=== PATIENT | male | born 1955 | race Caucasian/White ===

== ENCOUNTER 2023-04-02 09:39 | Observation (INO) ==
[2023-04-02 12:05] LABS: BASOPHILS # (AUTO) 0.1 X10^3/uL (0.0-0.1); BASOPHILS % (AUTO) 0.7 % (0.2-1.0); EOSINOPHILS # (AUTO) 0.4 x10^3/uL (0.0-0.2); EOSINOPHILS % (AUTO) 3.9 % (0.9-2.9); HEMATOCRIT 24.6 % (42.0-54.0); HEMOGLOBIN 8.5 g/dL (13.5-18.0); LYMPHOCYTES # (AUTO) 1.2 X10^3/uL (1.3-2.9); LYMPHOCYTES % (AUTO) 12.9 % (21.0-51.0); MEAN CORPUSCULAR HEMOGLOBIN 32.7 pg (27.0-34.0); MEAN CORPUSCULAR HGB CONC 34.7 g/dL (33.0-35.0); MEAN CORPUSCULAR VOLUME 94.2 fL (80.0-100.0); MEAN PLATELET VOLUME 7.2 fL (7.4-11.0); MONOCYTES # (AUTO) 0.7 x10^3/uL (0.3-0.8); MONOCYTES % (AUTO) 7.5 % (0.0-13.0); NEUTROPHILS # (AUTO) 6.9 x10^3/uL (2.2-4.8); PLATELET COUNT 182 X10^3/uL (150.0-450.0); RED BLOOD COUNT 2.61 X10^6/uL (4.7-6.0); RED CELL DISTRIBUTION WIDTH 15.6 % (11.6-16.5); WHITE BLOOD COUNT 9.2 X10^3/uL (3.6-10.0)
[2023-04-02 12:15] LABS: ALBUMIN 1.2 g/dL (3.4-5.0); CALCIUM 7.6 mg/dL (8.5-10.1); CARBON DIOXIDE 30.1 mmol/L (21-32); COR CA(FOR HYPOALB) 9.8 mg/dL (8.5-10.1); CREATININE 2.58 mg/dL (0.70-1.30); POTASSIUM 5.3 mmol/L (3.5-5.1); TOTAL PROTEIN 4.8 g/dL (6.4-8.2)
[2023-04-02] MEDS ORDERED: XYLOCAINE 1 % (PLAIN) ONE (12:39)
[2023-04-02] MEDS: PROVENTIL NEB TX 0.083% 2.5MG/ 3ML NEB SCH ×2 (13:24→21:10)
[2023-04-02] MEDS ORDERED: ALBUMIN HUMAN 25%- 100 ML 100 ML IV SCH (14:00)
[2023-04-02] MEDS: D5 1/2 NS 1,000 ML 1,000 ML IV SCH (14:04)
[2023-04-02] MEDS: MORPHINE SULFATE INJ 2 MG INJ IVP PRN ×2 (17:31→21:46)
[2023-04-02] MEDS ORDERED: TORADOL 30 MG VIAL IVP ONE (17:41)
[2023-04-02] MEDS ORDERED: ALBUMIN HUMAN 25%- 100 ML 100 ML IV ONE (18:00)
--- NOTE | 2023-04-03 00:57 | RAD ---
HISTORYASCITES, ANASARCASTUDYCHEST, 1 VIEWCOMPARISONApril 2022TECHNIQUEChest radiographic imaging, AP portable projection, 1 imageFINDINGSNo cardiomegaly.No focal airspace disease.Moderate right effusion; enlarged when compared to the previous exam.No pneumothorax.No acute osseous abnormality.Age-indeterminate mid right clavicle fracture.IMPRESSIONModerate right effusion; enlarged when compared to the previous exam.Electronically signed by: Eugenio Friedman (April 03, 2023 00:56:08)
[2023-04-03] MEDS: D5 1/2 NS 1,000 ML 1,000 ML IV SCH ×2 (02:35→04:05)
[2023-04-03] MEDS: MORPHINE SULFATE INJ 2 MG INJ IVP PRN (03:12)
[2023-04-03] MEDS: PROVENTIL NEB TX 0.083% 2.5MG/ 3ML NEB SCH (05:40)
[2023-04-03 08:27] VITALS: BP 134/62; PULSE 76; TEMP 98.5; O2SAT 97
[2023-04-03 08:49] LABS: BASOPHILS % (AUTO) 0.5 % (0.2-1.0); EOSINOPHILS # (AUTO) 0.4 x10^3/uL (0.0-0.2); EOSINOPHILS % (AUTO) 5.4 % (0.9-2.9); HEMOGLOBIN 8.9 g/dL (13.5-18.0); LYMPHOCYTES # (AUTO) 1.2 X10^3/uL (1.3-2.9); LYMPHOCYTES % (AUTO) 14.7 % (21.0-51.0); MEAN CORPUSCULAR HEMOGLOBIN 32.4 pg (27.0-34.0); MEAN CORPUSCULAR HGB CONC 34.3 g/dL (33.0-35.0); MEAN CORPUSCULAR VOLUME 94.7 fL (80.0-100.0); MEAN PLATELET VOLUME 7.6 fL (7.4-11.0); MONOCYTES # (AUTO) 0.7 x10^3/uL (0.3-0.8); MONOCYTES % (AUTO) 8.6 % (0.0-13.0); NEUTROPHILS # (AUTO) 5.6 x10^3/uL (2.2-4.8); NEUTROPHILS % (AUTO) 70.8 % (42.0-75.0); PLATELET COUNT 152 X10^3/uL (150.0-450.0); RED BLOOD COUNT 2.74 X10^6/uL (4.7-6.0); WHITE BLOOD COUNT 7.9 X10^3/uL (3.6-10.0)
[2023-04-03 09:02] LABS: ALBUMIN 1.7 g/dL (3.4-5.0); CALCIUM 7.3 mg/dL (8.5-10.1); CARBON DIOXIDE 26.2 mmol/L (21-32); COR CA(FOR HYPOALB) 9.1 mg/dL (8.5-10.1); CREATININE 2.65 mg/dL (0.70-1.30); POTASSIUM 4.5 mmol/L (3.5-5.1); TOTAL PROTEIN 4.9 g/dL (6.4-8.2)
[2023-04-03] MEDS ORDERED: ZOFRAN TAB 4 MG PO PRN (09:21)
[2023-04-03] MEDS ORDERED: NORCO 10/325 TAB PO PRN (09:21)
[2023-04-03] MEDS ORDERED: ALBUMIN HUMAN 25%- 100 ML 100 ML IV SCH (10:00)
[2023-04-03] MEDS ORDERED: COREG TAB 6.25 MG PO SCH (10:00)
== END 2023-04-03 11:20 | disposition home or self-care (01) ==
LOC: MED/SURG
PROVIDERS: ADMIT Surgery; ATTEND Surgery
DX: R18.8 Other ascites; R06.02 Shortness of breath; N18.9 Chronic kidney disease, unspecified; I12.9 Hypertensive chronic kidney disease with stage 1 through stage 4 chronic kidney disease, or unspecified chronic kidney disease; K74.69 Other cirrhosis of liver; B19.20 Unspecified viral hepatitis C without hepatic coma